=== PATIENT | female | born 1965 | race Caucasian/White ===

== ENCOUNTER 2017-12-04 18:42 | Emergency (ER) | payer OTHER ==
[~2017-12-04] VITALS: Ht 167.6 cm; Wt 110.8 kg
[~2017-12-04 18:42] MED LIST: ABILIFY30 MG PO; ASPIRIN EC325 MG PO; BENZTROPINE MESY1 MG PO; CYMBALTA30 MG PO; HYDROCODON-ACE1 EAC7 PO; IMIPRAMINE HCL50 MG PO; IMIPRAMINE PO; IRON325 MG PO; LAMICTAL100 MG PO; LAMOTRIGINE100 MG PO; LAMOTRIGINE200 MG PO; OMEPRAZOLE20 MG PO; VESICARE5 MG PO; ZANTAC150 MG PO; ZITHROMAX250 MG PO; [UNRECOGNIZED DRUG - OTHER] PO
[2017-12-04 19:24] LABS: APPEARANCE CLEAR ((CLEAR)); BILIRUBIN NEGATIVE; BLOOD NEGATIVE; COLOR YELLOW ((YELLOW)); GLUCOSE (STRIP) NEGATIVE; KETONES NEGATIVE; LEUKOCYTES NEGATIVE; NITRITE NEGATIVE; PROTEIN (STRIP) NEGATIVE; SPECIFIC GRAVITY 1.019 (1.000-1.030); UCUL ADDED? NO; UROBILINOGEN 0.2 MG/DL (0.2-1.0)
[2017-12-04 19:28] LABS: HEMOGLOBIN 13.8 G/DL (11.9-15.5); MCH 29.5 PG (29.0-34.0); MCHC 32.9 G/DL (30.0-36.0); MCV 89.7 FL (83-99); PLATELET COUNT 244 K/uL (156-360); RBC DIS.WIDTH-CV 15.2 % (11.8-14.6); RED BLOOD COUNT 4.68 M/uL (3.80-5.20); WHITE BLOOD COUNT 11.2 K/uL (4.1-10.2)
[2017-12-04 19:37] LABS: ALBUMIN 4.2 g/dL (3.2-4.8)
[2017-12-04 19:38] LABS: CHLORIDE 106 mEq/L (99-109); POTASSIUM 3.8 mEq/L (3.7-5.4); SODIUM 138 mEq/L (136-147)
[2017-12-04 19:40] LABS: GLUCOSE 99 mg/dL (70-99); TOTAL PROTEIN 7.6 g/dL (6.4-8.3)
[2017-12-04 19:42] LABS: TOTAL BILIRUBIN 0.4 mg/dL (0.0-1.0)
[2017-12-04 19:43] LABS: ALKALINE PHOSPHATASE 73 IU/L (3-129)
[2017-12-04 19:44] LABS: CREATININE 0.8 mg/dL (0.6-1.3); GFR ESTIMATE (CALCULATED) > 59 mL/min/
[2017-12-04 19:45] LABS: AST (GOT) 16 IU/L (2-34); UREA NITROGEN (BUN) 17 mg/dL (9-23)
[2017-12-04 19:47] LABS: ALT (GPT) 21 IU/L (3-49); LIPASE 17 U/L (1.0-51.0)
[2017-12-04 19:54] LABS: QUANTITATIVE HCG < 4.0 MIU/ML
[2017-12-05] MEDS ORDERED: FLAGYL500 MG PO (00:55)
[2017-12-05] MEDS ORDERED: CIPRO500 MG PO (00:55)
[2017-12-05 02:16] VITALS: BP 136/79
== END 2017-12-05 02:18 | disposition home or self-care (01) ==
LOC: EME 18:42
DX: K57.32 Diverticulitis of large intestine without perforation or abscess without bleeding (principal); E11.9 Type 2 diabetes mellitus without complications; K21.9 Gastro-esophageal reflux disease without esophagitis; F31.9 Bipolar disorder, unspecified; F32.9 Major depressive disorder, single episode, unspecified; F41.9 Anxiety disorder, unspecified; F17.200 Nicotine dependence, unspecified, uncomplicated; Z90.49 Acquired absence of other specified parts of digestive tract; Z88.2 Allergy status to sulfonamides; Z88.0 Allergy status to penicillin; Z88.5 Allergy status to narcotic agent; Z88.6 Allergy status to analgesic agent; Z88.8 Allergy status to other drugs, medicaments and biological substances; Z91.041 Radiographic dye allergy status
CPT/HCPCS: 74176; 80053; 81003; 83690; 84702; 85027; 99281; 99284; J7030

== ENCOUNTER 2018-01-02 14:24 | Emergency (ER) | payer OTHER ==
[~2018-01-02] VITALS: Ht 167.6 cm; Wt 111.5 kg
[~2018-01-02 14:24] MED LIST changes: +CIPRO500 MG PO; +FLAGYL500 MG PO
[2018-01-02 17:28] LABS: HEMATOCRIT 40.3 % (36.0-46.0); HEMOGLOBIN 13.2 G/DL (11.9-15.5); MCH 29.1 PG (29.0-34.0); MCHC 32.8 G/DL (30.0-36.0); MCV 88.8 FL (83-99); RBC DIS.WIDTH-CV 14.6 % (11.8-14.6); RBC DIS.WIDTH-SD 47.5 % (39-53); RED BLOOD COUNT 4.54 M/uL (3.80-5.20); WHITE BLOOD COUNT 10.7 K/uL (4.1-10.2)
[2018-01-02 17:34] LABS: ALBUMIN 3.8 g/dL (3.2-4.8)
[2018-01-02 17:35] LABS: CHLORIDE 104 mEq/L (99-109); POTASSIUM 3.8 mEq/L (3.7-5.4); SODIUM 138 mEq/L (136-147)
[2018-01-02 17:37] LABS: GLUCOSE 92 mg/dL (70-99); TOTAL PROTEIN 6.9 g/dL (6.4-8.3)
[2018-01-02 17:39] LABS: TOTAL BILIRUBIN 0.3 mg/dL (0.0-1.0)
[2018-01-02 17:40] LABS: ALKALINE PHOSPHATASE 64 IU/L (3-129); SERUM ETHYL ALCOHOL < 10 mg/dL
[2018-01-02 17:41] LABS: CREATININE 0.7 mg/dL (0.6-1.3); GFR ESTIMATE (CALCULATED) > 59 mL/min/
[2018-01-02 17:42] LABS: AST (GOT) 14 IU/L (2-34); UREA NITROGEN (BUN) 10 mg/dL (9-23)
[2018-01-02 17:44] LABS: ALT (GPT) 17 IU/L (3-49)
[2018-01-02 18:01] LABS: APPEARANCE CLEAR ((CLEAR)); BILIRUBIN NEGATIVE; BLOOD SMALL; COLOR YELLOW ((YELLOW)); GLUCOSE (STRIP) NEGATIVE; KETONES NEGATIVE; LEUKOCYTES TRACE; NITRITE NEGATIVE; PROTEIN (STRIP) NEGATIVE; SPECIFIC GRAVITY 1.014 (1.000-1.030); UROBILINOGEN 0.2 MG/DL (0.2-1.0)
[2018-01-02 18:04] LABS: PLAT.SUFFICIENCY ADEQUATE; PLATELET COUNT 190 K/uL (156-360)
[2018-01-02 18:08] LABS: BACTERIA RARE /HPF; EPITHELIAL CELLS 1+ /HPF; MUCUS TRACE /LPF; RED BLOOD CELLS 0-5 /HPF (0-5); UCUL ADDED? NO; WHITE BLOOD CELLS 0-5 /HPF (0-5)
[2018-01-02 18:28] LABS: AMPHETAMINE NEGATIVE (500 ng/mL); BARBITURATES NEGATIVE (200 ng/mL); BENZODIAZEPINES NEGATIVE (150 ng/mL); BUPRENORPHINE NEGATIVE (10 ng/mL); COCAINE NEGATIVE (150 ng/mL); METHADONE NEGATIVE (200 ng/mL); METHAMPHETAMINE NEGATIVE (500 ng/mL); OPIATES (MORPHINE) NEGATIVE (100 ng/mL); OXYCODONE NEGATIVE (100 ng/mL); PHENCYCLIDINE NEGATIVE (25 ng/mL); PROPOXYPHENE NEGATIVE (300 ng/mL); THC CANNABINOIDS PRESUMPTIVE POSITIVE (50 ng/mL); TRICYCLIC ANTIDEPRESSANTS NEGATIVE (300 ng/mL)
[2018-01-02 19:38] VITALS: BP 119/81
== END 2018-01-02 19:39 | disposition home or self-care (01) ==
LOC: EME 14:24
PROVIDERS: Emergency Medicine
DX: F32.9 Major depressive disorder, single episode, unspecified (principal); F60.3 Borderline personality disorder; F12.90 Cannabis use, unspecified, uncomplicated; F31.9 Bipolar disorder, unspecified; F41.9 Anxiety disorder, unspecified; K21.9 Gastro-esophageal reflux disease without esophagitis; E11.9 Type 2 diabetes mellitus without complications; F17.200 Nicotine dependence, unspecified, uncomplicated; Z90.49 Acquired absence of other specified parts of digestive tract; Z88.0 Allergy status to penicillin; Z88.2 Allergy status to sulfonamides; Z88.1 Allergy status to other antibiotic agents; Z88.5 Allergy status to narcotic agent; Z88.6 Allergy status to analgesic agent; Z88.8 Allergy status to other drugs, medicaments and biological substances; Z91.041 Radiographic dye allergy status
CPT/HCPCS: 80053; 81003; 84999; 85027; 90839; 99281; 99285; G0480

== ENCOUNTER 2018-01-02 21:28 | Emergency (ER) | payer OTHER ==
[~2018-01-02] VITALS: Ht 167.6 cm; Wt 111.3 kg
[2018-01-03 04:26] VITALS: BP 114/85
== END 2018-01-03 04:38 ==
LOC: EME 21:28
DX: R45.851 Suicidal ideations (principal); F32.9 Major depressive disorder, single episode, unspecified; F17.200 Nicotine dependence, unspecified, uncomplicated
CPT/HCPCS: 90837; 99281; 99285; G0480